=== PATIENT | male | born 1970 | race Caucasian/White ===

== ENCOUNTER 2017-04-05 13:42 | Emergency (ER) | payer MEDICAID ==
[2017-04-05 14:17] LABS: COLOR PALE YELLOW; LEUKOCYTE ESTERASE,URINE NEGATIVE (NEGATIVE); NITRITE,URINE NEGATIVE (NEGATIVE)
--- NOTE | 2017-04-05 16:16 | EDPHY ---
H & P Stated Complaint: FAINT, BLOOD IN URINE, SORE THROAT, COUGH, DIARRHEA HPI/ROS: HPI CHIEF COMPLAINT: Multiple complaints HISTORY OF PRESENT ILLNESS: This patient 38-year-old male, homeless, history of PTSD and schizophrenia, who presents emergency room by private vehicle with multitude of complaints. Patient states he has been "ill" for years. Decided come the emergency room because he states he has been having muscle aches and joint pain. Additionally he has had a cough that is productive in nature. Additionally tells me feels globally weak. He denies chest pain or shortness of breath. He does endorse nausea but no vomiting. Endorses some watery diarrhea. He states been feeling like this for years. Past Medical History: PTSD and schizophrenia Past Surgical History: No recent surgery Social History: Lives in his car, homeless, denies daily use of drugs alcohol tobacco products. Unemployed. Family History: Noncontributory. ROS REVIEW OF SYSTEMS: A comprehensive 10 point review of systems is otherwise negative aside from elements mentioned in the history of present illness. Exam Constitutional triage nursing summary reviewed, vital signs reviewed, awake/ alert. Eyes normal conjunctivae and sclera, EOMI, PERRLA. HENT normal inspection, atraumatic, moist mucus membranes, no epistaxis, neck supple/ no meningismus, no raccoon eyes. Respiratory clear to auscultation bilaterally, normal breath sounds, no respiratory distress, no wheezing. Cardiovascular rate normal, regular rhythm, no murmur, no edema, distal pulses normal. Gastrointestinal soft, non-tender, no rebound, no guarding, normal bowel sounds, no distension, no pulsatile mass. Genitourinary no CVA tenderness. Musculoskeletal no midline vertebral tenderness, full range of motion, no calf swelling, no tenderness of extremities, no meningismus, good pulses, neurovascularly intact. Skin pink, warm, & dry, no rash, skin atraumatic. Neurologic awake, alert and oriented x 3, AAOx3, moves all 4 extremities equally, motor intact, sensory intact, CN II-XII intact, normal cerebellar, normal vision, normal speech. Psychiatric normal mood/affect. Heme/Lymph/Immune no lymphadenopathy. Differential Diagnosis: Includes but is not limited to in a particular order viral syndrome, dehydration, electrolyte disturbance, influenza Medical Decision Making: Plan for this patient IV establishment with blood draw , obtain basic blood work electrolytes, check influenza, EKG, urinalysis Re-evaluation: EKG interpretation by me on record in [email or web address] system. Impression time of EKG 165, sinus rhythm rate of 79 no acute ischemic changes. 1918: Blood work has been reviewed. Electrolytes are appropriate. Urinalysis does not show any blood. Negative influenza. Chest x-ray does not show acute cardiopulmonary disease. Troponin negative. EKG is nonischemic. Patient's vital signs are stable. I do not have a great reason for his constellation of symptoms that have been going on for years. I do recommend that he follows up with his primary care doctor. There is no evidence of an acute medical condition at this time. He is comfortable discharge planning. Source: Patient - Personal History Current Tetanus/Diphtheria Vaccine: No Current Tetanus Diphtheria and Acellular Pertussis (TDAP): No - Medical/Surgical History Hx Asthma: No Hx Chronic Respiratory Disease: No Hx Diabetes: No Hx Cardiac Disease: No Hx Renal Disease: No Hx Cirrhosis: No Hx Alcoholism: Yes Hx HIV/AIDS: No Hx Splenectomy or Spleen Trauma: No Other PMH: IV drug user - Social History Smoking Status: Current every day smoker Constitutional: Initial Vital Signs Temperature (C) 36.9 C 04/05/17 13:49 Heart Rate 86 04/05/17 13:49 Respiratory Rate 18 04/05/17 13:49 Blood Pressure 118/78 04/05/17 13:49 O2 Sat (%) 96 04/05/17 13:49 O2 Delivery Mode Room Air Allergies/Adverse Reactions: codeine [Codeine] Allergy (Intermediate, Verified 04/05/17 13:48) Itching acetaminophen [From [place]] Allergy (Verified 04/05/17 13:48) hydrocodone [From [place]] Allergy (Verified 04/05/17 13:48) hydromorphone Allergy (Verified 04/05/17 13:48) morphine Allergy (Verified 04/05/17 13:48) Medical Decision Making - Diagnostics Imaging Results: Imaging Impressions Chest X-Ray 04/05/17 16:22 Impression: No pneumonia. Little if any change since November 2011. - Data Points Laboratory Results: Laboratory Results 04/05/17 18:35 04/05/17 18:35 04/05/17 04/05/17 04/05/17 Unknown 18:35 18:35 WBC RBC Hgb Hct MCV MCH MCHC RDW Plt Count MPV Neut % (Auto) Lymph % (Auto) [place] % (Auto) Eos % (Auto) Baso % (Auto) Nucleat RBC Rel Count Absolute Neuts (auto) Absolute Lymphs (auto) Absolute Monos (auto) Absolute Eos (auto) Absolute Basos (auto) Absolute Nucleated RBC Immature Gran % Immature Gran # PT 13.5 SEC SEC (12.0-15.0) INR 1.01 (0.83-1.16) APTT 30.0 SEC SEC (23.0-38.0) Sodium 139 mEq/L mEq/L (134-144) Potassium 4.4 mEq/L mEq/L (3.5-5.2) Chloride 106 mEq/L mEq/L (97-110) Carbon Dioxide 22 mEq/l mEq/l (22-31) Anion Gap 11 mEq/L mEq/L (8-16) BUN 24 mg/dL H mg/dL (7-23) Creatinine 0.9 mg/dL mg/dL (0.7-1.3) Estimated GFR > 60 Glucose 91 mg/dL mg/dL (70-100) Calcium 9.1 mg/dL mg/dL (8.5-10.4) Magnesium 1.8 mg/dL mg/dL (1.6-2.3) Total Bilirubin 0.4 mg/dL mg/dL (0.1-1.4) Conjugated Bilirubin 0.2 mg/dL mg/dL (0.0-0.5) Unconjugated Bilirubin 0.2 mg/dL mg/dL (0.0-1.1) AST 17 IU/L IU/L (17-59) ALT 24 IU/L IU/L (21-72) Alkaline Phosphatase 63 IU/L IU/L (38-126) Troponin I < 0.012 ng/mL ng/mL (0.000-0.034) NT-Pro-B Natriuret Pep 44 pg/mL pg/mL (0-125) Total Protein 6.5 g/dL g/dL (6.3-8.2) Albumin 3.7 g/dL g/dL (3.5-5.0) Lipase 158 IU/L IU/L (23-300) Urine Color Urine Appearance Urine pH Ur Specific [place] Urine Protein Urine Ketones Urine Blood Urine Nitrate Urine Bilirubin Urine Urobilinogen Ur Leukocyte Esterase Urine Glucose Nasal Influenza A PCR Nasal Influenza B PCR Urine Opiates Screen NEGATIVE (NEGATIVE) Urine Barbiturates NEGATIVE (NEGATIVE) Ur Phencyclidine Scrn NEGATIVE (NEGATIVE) Ur Amphetamine Screen NEGATIVE (NEGATIVE) U Benzodiazepines Scrn NEGATIVE (NEGATIVE) Urine Cocaine Screen NEGATIVE (NEGATIVE) U Marijuana (THC) Screen NEGATIVE (NEGATIVE) 04/05/17 04/05/17 04/05/17 18:35 17:00 14:00 WBC 7.56 10^3/uL 10^3/uL (3.80-9.50) RBC 4.06 10^6/uL L 10^6/uL (4.40-6.38) Hgb 13.5 g/dL L g/dL (13.7-17.5) Hct 37.5 % L % (40.0-51.0) MCV 92.4 fL fL (81.5-99.8) MCH 33.3 pg pg (27.9-34.1) MCHC 36.0 g/dL g/dL (32.4-36.7) RDW 12.1 % % (11.5-15.2) Plt Count 237 10^3/uL 10^3/uL (150-400) MPV 10.2 fL fL (8.7-11.7) Neut % (Auto) 58.0 % % (39.3-74.2) Lymph % (Auto) 29.8 % % (15.0-45.0) [place] % (Auto) 7.9 % % (4.5-13.0) Eos % (Auto) 3.6 % % (0.6-7.6) Baso % (Auto) 0.4 % % (0.3-1.7) Nucleat RBC Rel Count 0.0 % % (0.0-0.2) Absolute Neuts (auto) 4.39 10^3/uL 10^3/uL (1.70-6.50) Absolute Lymphs (auto) 2.25 10^3/uL 10^3/uL (1.00-3.00) Absolute Monos (auto) 0.60 10^3/uL 10^3/uL (0.30-0.80) Absolute Eos (auto) 0.27 10^3/uL 10^3/uL (0.03-0.40) Absolute Basos (auto) 0.03 10^3/uL 10^3/uL (0.02-0.10) Absolute Nucleated RBC 0.00 10^3/uL 10^3/uL (0-0.01) Immature Gran % 0.3 % % (0.0-1.1) Immature Gran # 0.02 10^3/uL 10^3/uL (0.00-0.10) PT INR APTT Sodium Potassium Chloride Carbon Dioxide Anion Gap BUN Creatinine Estimated GFR Glucose Calcium Magnesium Total Bilirubin Conjugated Bilirubin Unconjugated Bilirubin AST ALT Alkaline Phosphatase Troponin I NT-Pro-B Natriuret Pep Total Protein Albumin Lipase Urine Color PALE YELLOW Urine Appearance MODERATELY TURBID Urine pH 5.0 (5.0-7.5) Ur Specific [place] 1.005 (1.002-1.030) Urine Protein NEGATIVE (NEGATIVE) Urine Ketones NEGATIVE (NEGATIVE) Urine Blood NEGATIVE (NEGATIVE) Urine Nitrate NEGATIVE (NEGATIVE) Urine Bilirubin NEGATIVE (NEGATIVE) Urine Urobilinogen NEGATIVE EU EU (0.2-1.0) Ur Leukocyte Esterase NEGATIVE (NEGATIVE) Urine Glucose NEGATIVE (NEGATIVE) Nasal Influenza A PCR NEGATIVE FOR FLU A (NEGATIVE) Nasal Influenza B PCR NEGATIVE FOR FLU B (NEGATIVE) Urine Opiates Screen Urine Barbiturates Ur Phencyclidine Scrn Ur Amphetamine Screen U Benzodiazepines Scrn Urine Cocaine Screen U Marijuana (THC) Screen Medications Given: Discontinued Medications Sodium Chloride (Ns) 1,000 mls @ 0 mls/hr IV EDNOW ONE; Wide Open PRN Reason: Protocol Stop: 04/05/17 16:22 Last Admin: 04/05/17 16:57 Dose: 1,000 mls Ondansetron HCl (Zofran) 4 mg IVP EDNOW ONE Stop: 04/05/17 16:23 Last Admin: 04/05/17 16:57 Dose: 4 mg Departure - Departure Disposition: Home, Routine, Self-Care Clinical Impression: Dehydration Condition: Good Instructions: Dehydration (ED) Additional Instructions: 1. Stay well-hydrated drink lots of fluids. 2. Return emergency room if there is worsening symptoms questions or concerns. 3. Follow up with her primary care doctor Referrals: [facility] [Other] - As per Instructions
[2017-04-05] MEDS ORDERED: NS 1,000 ML IV ONE (16:21)
[2017-04-05] MEDS ORDERED: ONDANSETRON 4 MG/2 ML VIAL IVP ONE (16:22)
--- NOTE | 2017-04-05 16:54 | CPEKG ---
Heart Rate: 79 RR Interval: 759 P-R Interval: 152 QRSD Interval: 74 QT Interval: 368 QTC Interval: 422 P [place]: 49 QRS [place]: 45 T Wave [place]: 39 EKG Severity - NORMAL ECG - EKG Impression: SINUS RHYTHM Electronically Signed By: Grupo Nance 05-Apr-2017 22:51:04
[2017-04-05 17:00] VITALS: RESP 16; O2SAT 92
[2017-04-05 18:52] LABS: % IMMATURE GRANULYOCYTES 0.3 % (0.0-1.1); ABSOLUTE IMMATURE GRANULOCYTES 0.02 10^3/uL (0.00-0.10); ADD DIFF? NO; ADD MORPH? NO; ADD SCAN? NO; ATYPICAL LYMPHOCYTE FLAG 0 (0-99); FRAGMENT RBC FLAG 0 (0-99); HEMATOCRIT 37.5 % (40.0-51.0); HEMOGLOBIN 13.5 g/dL (13.7-17.5); LEFT SHIFT FLG 0 (0-99); LIPEMIA HEMOLYSIS FLAG 90 (0-99); MEAN CELL HEMOGLOBIN 33.3 pg (27.9-34.1); MEAN CELL VOLUME 92.4 fL (81.5-99.8); MEAN PLATELET VOLUME 10.2 fL (8.7-11.7); PLATELET CLUMPS FLAG 10 (0-99); PLATELET COUNT 237 10^3/uL (150-400); RED BLOOD CELL COUNT 4.06 10^6/uL (4.40-6.38); RED CELL DISTRIBUTION WIDTH 12.1 % (11.5-15.2)
[2017-04-05 18:59] LABS: INR 1.01 (0.83-1.16); PROTIME(PATIENT) 13.5 SEC (12.0-15.0)
[2017-04-05 19:00] LABS: ALANINE AMINOTRANSFERASE 24 IU/L (21-72); ALBUMIN 3.7 g/dL (3.5-5.0); ALKALINE PHOSPHATASE 63 IU/L (38-126); ANION GAP 11 mEq/L (8-16); ASPARTATE AMINOTRANSFERASE 17 IU/L (17-59); BILIRUBIN,TOTAL 0.4 mg/dL (0.1-1.4); BILIRUBIN-CONJUGATED 0.2 mg/dL (0.0-0.5); BILIRUBIN-UNCONJUGATED 0.2 mg/dL (0.0-1.1); CALCIUM 9.1 mg/dL (8.5-10.4); CARBON DIOXIDE 22 mEq/l (22-31); CHLORIDE 106 mEq/L (97-110); CREATININE 0.9 mg/dL (0.7-1.3); GLOMERULAR FILTRATION RATE > 60; GLUCOSE 91 mg/dL (70-100); MAGNESIUM 1.8 mg/dL (1.6-2.3); POTASSIUM 4.4 mEq/L (3.5-5.2); SODIUM 139 mEq/L (134-144); TOTAL PROTEIN 6.5 g/dL (6.3-8.2)
[2017-04-05 19:11] LABS: TROPONIN I < 0.012 ng/mL (0.000-0.034)
[2017-04-05 19:30] VITALS: BP 128/73; PULSE 67; TEMP 97.9
== END 2017-04-05 19:29 | disposition home or self-care (01) ==
DX: E86.0 Dehydration (principal); E86.9 Volume depletion, unspecified; F17.200 Nicotine dependence, unspecified, uncomplicated
CPT/HCPCS: 80305; 96374; J2405

== ENCOUNTER 2017-04-14 21:00 | Emergency (ER) | payer MEDICAID ==
[2017-04-14 21:07] VITALS: BP 122/77; PULSE 80; RESP 18; TEMP 97.9; O2SAT 96
[2017-04-14] MEDS ORDERED: OLANZapine DISINTEGR 5 MG TAB PO ONE (21:45)
[2017-04-14] MEDS ORDERED: ZIPRASIDONE MESYLATE 20 MG VIAL IM ONE (21:49)
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
[2017-04-14] MEDS ORDERED: LORazepam 2 MG/ML INJ ONE (22:09)
[2017-04-14] MEDS ORDERED: LORazepam 2 MG/ML INJ IM ONE (22:17)
[2017-04-15] MEDS ORDERED: ZIPRASIDONE MESYLATE 20 MG VIAL IM ONE (00:14)
== END 2017-04-15 01:31 ==
DX: R45.851 Suicidal ideations (principal); F30.9 Manic episode, unspecified; F17.200 Nicotine dependence, unspecified, uncomplicated; F29 Unspecified psychosis not due to a substance or known physiological condition
CPT/HCPCS: 80305; J2060; J3486

== ENCOUNTER 2017-04-16 05:57 | Emergency (ER) | payer MEDICAID ==
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
[2017-04-16 06:09] VITALS: BP 138/86; PULSE 66; RESP 18; TEMP 97.9; O2SAT 96
[2017-04-16] MEDS ORDERED: IBUPROFEN 600 MG TAB PO ONE ×2 (06:16)
== END 2017-04-16 06:44 | disposition home or self-care (01) ==
DX: T14.8XXA Other injury of unspecified body region, initial encounter (principal); F17.200 Nicotine dependence, unspecified, uncomplicated; Y09 Assault by unspecified means

== ENCOUNTER 2017-10-22 16:41 | Emergency (ER) | payer MEDICAID ==
[2017-10-22 16:52] VITALS: BP 107/75
[2017-10-22] MEDS ORDERED: diphenhydrAMINE 25 MG CAP PO ONE (17:14)
[2017-10-22] MEDS ORDERED: predniSONE 20 MG TAB PO ONE (17:14)
[2017-10-22] MEDS ORDERED: FAMOTIDINE 20 MG TAB PO ONE (17:14)
--- NOTE | 2017-10-22 17:16 | EDPHY ---
H & P Stated Complaint: Noticed urticarial rash since yesterday; mostly on extremities Time Seen by Provider: 10/22/17 17:10 HPI/ROS: CHIEF COMPLAINT: Urticaria HISTORY OF PRESENT ILLNESS: The patient is a 47-year-old man who comes to the emergency department complaining of urticaria to his armpits and forearms and back of his legs. He 1st noticed yesterday. It is pruritic and he is itching it. No known new exposures. No new foods. No new medications. He states that he has been sober from drugs and alcohol for 8 months. No respiratory symptoms. No GI symptoms. REVIEW OF SYSTEMS: Constitutional: denies: chills, fever, recent illness, recent injury EENTM: denies: blurred vision, double vision, nose congestion Respiratory: denies: cough, shortness of breath Cardiac: denies: chest pain, irregular heart rate, lightheadedness, palpitations Gastrointestinal/Abdominal: denies: abdominal pain, diarrhea, nausea, vomiting, blood streaked stools Genitourinary: denies: dysuria, frequency, hematuria, pain Musculoskeletal: denies: joint pain, muscle pain Skin: See HPI Neurological: denies: headache, numbness, paresthesia, tingling, dizziness, weakness Hematologic/Lymphatic: denies: blood clots, easy bleeding, easy bruising Immunologic/allergic: denies: HIV/AIDS, transplant EXAM: GENERAL: Well-appearing, well-nourished and in no acute distress. HEAD: Atraumatic, normocephalic. EYES: Pupils equal round and reactive to light, extraocular movements intact, sclera anicteric, conjunctiva are normal. ENT: TMs normal, nares patent, oropharynx clear without exudates. Moist mucous membranes. NECK: Normal range of motion, supple without lymphadenopathy or JVD. LUNGS: Breath sounds clear to auscultation bilaterally and equal. No wheezes rales or rhonchi. HEART: Regular rate and rhythm without murmurs, rubs or gallops. ABDOMEN: Soft, nontender, normoactive bowel sounds. No guarding, no rebound. No masses appreciated. BACK: No CVA tenderness, no spinal tenderness, step-offs or deformities EXTREMITIES: Normal range of motion, no pitting or edema. No clubbing or cyanosis. NEUROLOGICAL: Cranial nerves II through XII grossly intact. Normal speech, normal gait. 5/5 strength, normal movement in all extremities, normal sensation PSYCH: Normal mood, normal affect. SKIN: Small urticarial lesions to both armpits and both forearms as well as behind knees. Source: Patient Exam Limitations: No limitations - Personal History Current Tetanus Diphtheria and Acellular Pertussis (TDAP): Yes - Medical/Surgical History Hx Asthma: No Hx Chronic Respiratory Disease: No Hx Diabetes: No Hx Cardiac Disease: No Hx Renal Disease: No Hx Cirrhosis: No Hx Alcoholism: Yes Hx HIV/AIDS: No Hx Splenectomy or Spleen Trauma: No Other PMH: PSYCH ISSUES. IV drug user - Family History Significant Family History: No pertinent family hx - Social History Smoking Status: Current every day smoker Alcohol Use: Sober Drug Use: None Constitutional: Initial Vital Signs Temperature (C) 36.8 C 10/22/17 16:45 Heart Rate 80 10/22/17 16:45 Respiratory Rate 16 10/22/17 16:45 Blood Pressure 107/75 10/22/17 16:45 O2 Sat (%) 95 10/22/17 16:45 O2 Delivery Mode Room Air Allergies/Adverse Reactions: codeine [Codeine] Allergy (Intermediate, Verified 04/05/17 13:48) Itching acetaminophen [From [place]] Allergy (Verified 04/05/17 13:48) hydrocodone [From [place]] Allergy (Verified 04/05/17 13:48) hydromorphone Allergy (Verified 10/22/17 16:52) morphine Allergy (Verified 10/22/17 16:52) Home Medications: Medication Instructions Recorded diphenhydrAMINE [Benadryl 50 MG 50 mg PO Q4-6PRN PRN #30 cap 10/22/17 (OTC)] methylPREDNISolone [Medrol Dose 1 each PO AD #1 ea 10/22/17 Nitish] Medical Decision Making ED Course/Re-evaluation: 6:15 p.m. the patient's symptoms have improved. He is asking to go home. I will have him continue Benadryl give him a Solu-Medrol taper. He is happy with this plan. We discussed indications for returning. Differential Diagnosis: Partial list of the Differential diagnosis considered include but were not limited to; allergic reaction, urticaria and although unlikely based on the history and physical exam, I also considered anaphylaxis, infection. - Data Points Medications Given: Discontinued Medications Diphenhydramine HCl (Benadryl) 50 mg PO EDNOW ONE Stop: 10/22/17 17:15 Last Admin: 10/22/17 17:17 Dose: 50 mg Famotidine (Pepcid) 40 mg PO EDNOW ONE Stop: 10/22/17 17:15 Last Admin: 10/22/17 17:17 Dose: 40 mg Prednisone (Prednisone) 60 mg PO EDNOW ONE Stop: 10/22/17 17:15 Last Admin: 10/22/17 17:17 Dose: 60 mg Departure - Departure Disposition: Home, Routine, Self-Care Clinical Impression: Urticaria Condition: Fair Instructions: Urticaria (ED) Referrals: Deyanira Patterson PA [Primary Care Provider] - As per Instructions Rupali Venegas MD [[facility] [place] Primary Care Provider] - As per Instructions Prescriptions: diphenhydrAMINE [Benadryl 50 MG (OTC)] 50 mg PO Q4-6PRN PRN #30 cap PRN Reason: Itching methylPREDNISolone [Medrol Dose Nitish] 1 each PO AD #1 ea
== END 2017-10-22 18:23 | disposition home or self-care (01) ==
DX: L50.9 Urticaria, unspecified (principal); F17.200 Nicotine dependence, unspecified, uncomplicated
CPT/HCPCS: J7512

== ENCOUNTER 2017-10-25 21:35 | Emergency (ER) | payer MEDICAID ==
--- NOTE | 2017-10-25 21:58 | EDPHY ---
H & P Stated Complaint: general soreness, lightheaded, abd pain Time Seen by Provider: 10/25/17 21:58 HPI/ROS: HPI CHIEF COMPLAINT: GI upset, diarrhea HISTORY OF PRESENT ILLNESS: 47-year-old male, history of IV drug use, as well as schizophrenia, presents emergency room stating that his stomach has been upset since being treated for possible allergic reaction recently. He states he was started on Benadryl and got a dose of steroids in the emergency room approximately 4 days ago for rash. The rash has improved. He no longer feels like he is having allergic reaction. However he comes back to the emergency room as he states he has been feeling abdominal bloating and cramps at times, as well as some loose watery diarrhea. No melena. No hematemesis. Denies any fever. Denies any significant abdominal pain. Denies chest pain or shortness of breath. Denies bloody stool or fever. Past Medical History: IV drug use, schizophrenia, homelessness Past Surgical History: No recent surgery Social History: Denies daily use drugs alcohol tobacco. Family History: Noncontributory ROS REVIEW OF SYSTEMS: A comprehensive 10 point review of systems is otherwise negative aside from elements mentioned in the history of present illness. Exam Constitutional nontoxic appearing, triage nursing summary reviewed, vital signs reviewed, awake/alert. Eyes normal conjunctivae and sclera, EOMI, PERRLA. HENT normal inspection, atraumatic, moist mucus membranes, no epistaxis, neck supple/ no meningismus, no raccoon eyes. Respiratory clear to auscultation bilaterally, normal breath sounds, no respiratory distress, no wheezing. Cardiovascular rate normal, regular rhythm, no murmur, no edema, distal pulses normal. Gastrointestinal soft, non-tender, no rebound, no guarding, normal bowel sounds, no distension, no pulsatile mass. Genitourinary no CVA tenderness. Musculoskeletal no midline vertebral tenderness, full range of motion, no calf swelling, no tenderness of extremities, no meningismus, good pulses, neurovascularly intact. Skin pink, warm, & dry, no rash, skin atraumatic. Neurologic awake, alert and oriented x 3, AAOx3, moves all 4 extremities equally, motor intact, sensory intact, CN II-XII intact, normal cerebellar, normal vision, normal speech. Psychiatric normal mood/affect. Heme/Lymph/Immune no lymphadenopathy. Differential Diagnosis: Includes but is not limited to in a particular order dehydration, electrolyte disturbance, acute GI illness, diarrheal illness, reaction to steroids Medical Decision Making: Plan for this patient IV establishment IV fluid bolus 1 L normal saline, check basic electrolytes, CBC, lipase, re-evaluate. Re-evaluation: 234: Patient re-evaluated resting comfortably no acute distress. Patient asystole drinking eat. I did reexamine him at this time is abdomen is soft nontender. No vomiting. Feels much better. Return precautions discussed with him he understands return emergency room if develops worsening abdominal pain fever worsening diarrhea bloody stool or questions or concerns. Izard diet over the next 48 hr. Source: Patient - Medical/Surgical History Hx Asthma: No Hx Chronic Respiratory Disease: No Hx Diabetes: No Hx Cardiac Disease: No Hx Renal Disease: No Hx Cirrhosis: No Hx Alcoholism: Yes Hx HIV/AIDS: No Hx Splenectomy or Spleen Trauma: No Other PMH: PSYCH ISSUES. IV drug user - Social History Smoking Status: Current every day smoker Constitutional: Initial Vital Signs Temperature (C) 36.8 C 10/25/17 21:43 Heart Rate 76 10/25/17 21:43 Respiratory Rate 20 10/25/17 21:43 Blood Pressure 133/71 H 10/25/17 21:43 O2 Sat (%) 95 10/25/17 21:43 O2 Delivery Mode Room Air Allergies/Adverse Reactions: codeine [Codeine] Allergy (Intermediate, Verified 04/05/17 13:48) Itching acetaminophen [From [place]] Allergy (Verified 04/05/17 13:48) bupropion [From Wellbutrin] Allergy (Verified 10/25/17 21:42) chlorpromazine [From [place]] Allergy (Verified 10/25/17 21:42) haloperidol [From Haldol] Allergy (Verified 10/25/17 21:42) hydrocodone [From [place]] Allergy (Verified 04/05/17 13:48) hydromorphone Allergy (Verified 10/22/17 16:52) morphine Allergy (Verified 10/22/17 16:52) quetiapine [From Seroquel] Allergy (Verified 10/25/17 21:42) Home Medications: Medication Instructions Recorded diphenhydrAMINE [Benadryl 50 MG 50 mg PO Q4-6PRN PRN #30 cap 10/22/17 (OTC)] methylPREDNISolone [Medrol Dose 1 each PO AD #1 ea 10/22/17 Nitish] Medical Decision Making - Data Points Laboratory Results: Laboratory Results 10/25/17 22:45 10/25/17 22:45 10/25/17 10/25/17 22:45 22:45 WBC 6.12 10^3/uL 10^3/uL (3.80-9.50) RBC 3.58 10^6/uL L 10^6/uL (4.40-6.38) Hgb 11.7 g/dL L g/dL (13.7-17.5) Hct 34.1 % L % (40.0-51.0) MCV 95.3 fL fL (81.5-99.8) MCH 32.7 pg pg (27.9-34.1) MCHC 34.3 g/dL g/dL (32.4-36.7) RDW 13.8 % % (11.5-15.2) Plt Count 322 10^3/uL 10^3/uL (150-400) MPV 10.4 fL fL (8.7-11.7) Neut % (Auto) 62.1 % % (39.3-74.2) Lymph % (Auto) 27.6 % % (15.0-45.0) [place] % (Auto) 8.5 % % (4.5-13.0) Eos % (Auto) 1.0 % % (0.6-7.6) Baso % (Auto) 0.5 % % (0.3-1.7) Nucleat RBC Rel Count 0.0 % % (0.0-0.2) Absolute Neuts (auto) 3.80 10^3/uL 10^3/uL (1.70-6.50) Absolute Lymphs (auto) 1.69 10^3/uL 10^3/uL (1.00-3.00) Absolute Monos (auto) 0.52 10^3/uL 10^3/uL (0.30-0.80) Absolute Eos (auto) 0.06 10^3/uL 10^3/uL (0.03-0.40) Absolute Basos (auto) 0.03 10^3/uL 10^3/uL (0.02-0.10) Absolute Nucleated RBC 0.00 10^3/uL 10^3/uL (0-0.01) Immature Gran % 0.3 % % (0.0-1.1) Immature Gran # 0.02 10^3/uL 10^3/uL (0.00-0.10) Sodium 135 mEq/L mEq/L (135-145) Potassium 5.1 mEq/L H mEq/L (3.3-5.0) Chloride 108 mEq/L mEq/L (97-110) Carbon Dioxide 24 mEq/l mEq/l (22-31) Anion Gap 3 mEq/L L mEq/L (8-16) BUN 27 mg/dL H mg/dL (7-23) Creatinine 0.8 mg/dL mg/dL (0.7-1.3) Estimated GFR > 60 Glucose 96 mg/dL mg/dL (70-100) Calcium 8.7 mg/dL mg/dL (8.5-10.4) Total Bilirubin 0.7 mg/dL mg/dL (0.1-1.4) Conjugated Bilirubin 0.6 mg/dL H mg/dL (0.0-0.5) Unconjugated Bilirubin 0.1 mg/dL mg/dL (0.0-1.1) AST 33 IU/L IU/L (17-59) ALT 17 IU/L L IU/L (21-72) Alkaline Phosphatase 62 IU/L IU/L (38-126) Creatine Kinase 242 IU/L H IU/L (0-224) CK-MB (CK-2) Fraction 1.47 ng/mL ng/mL (0.00-4.55) CK-MB (CK-2) % 0.6 % % (0.0-4.0) Creatine Kinase Interp NEGATIVE (NEGATIVE) Total Protein 6.7 g/dL g/dL (6.3-8.2) Albumin 3.9 g/dL g/dL (3.5-5.0) Lipase 149 IU/L IU/L (23-300) Specimen Hemolysis 165 Medications Given: Discontinued Medications Sodium Chloride (Ns) 1,000 mls @ 0 mls/hr IV EDNOW ONE; Wide Open PRN Reason: Protocol Stop: 10/25/17 22:02 Last Admin: 10/25/17 22:46 Dose: 1,000 mls Departure - Departure Disposition: Home, Routine, Self-Care Clinical Impression: Diarrhea Qualifiers: Diarrhea type: unspecified type Qualified Code(s): R19.7 - Diarrhea, unspecified Condition: Good Instructions: Acute Diarrhea (ED) Referrals: NONE *PRIMARY CARE P,. [Primary Care Provider] - As per Instructions
[2017-10-25] MEDS ORDERED: NS 1,000 ML IV ONE (22:01)
[2017-10-25 22:23] VITALS: BP 117/68
[2017-10-25 22:54] LABS: PLATELET COUNT 322 10^3/uL (150-400)
[2017-10-25 23:15] LABS: CREATINE KINASE 242 IU/L (0-224)
== END 2017-10-25 23:51 | disposition home or self-care (01) ==
DX: R19.7 Diarrhea, unspecified (principal); E86.9 Volume depletion, unspecified; F17.200 Nicotine dependence, unspecified, uncomplicated

== ENCOUNTER 2017-11-01 15:15 | Emergency (ER) | payer MEDICAID ==
--- NOTE | 2017-11-01 17:21 | EDPHY ---
H & P Time Seen by Provider: 11/01/17 17:16 HPI/ROS: Chief complaint. balance issues HPI. Patient 47-year-old male tells me that he has had balance issues for 6 months. He has not had a workup. He is seen at [facility]. He was seen in our emergency department October 25 and October 22. Patient says that occasionally he loses his balance wall riding his bicycle. He has a history of schizophrenia not on any medications. He has a history of IV drug use and alcoholism. Denies recent ingestions. Been no head injury. Denies chest pain , fever, abdominal pain, focal weakness or paresthesias. Patient started taking Dramamine to see if that would help with his balance but does not feel it has. Patient has been having balance issues for 6 months and is not worse today. ROS Constitutional. no fever/chills, no weakness Eyes. no problems with vision ENT. no sore throat, no nasal drainage Cardiovascular. no chest pain Respiratory. no shortness of breath, no cough Abdominal. no abdominal pain, no nausea/vomiting, no diarrhea . no problems urinating MS. no calf pain/swelling, no neck/back pain, no joint pain Skin. no rash Lymph. no swollen glands Neuro. Balance issues Past Medical/Surgical History: Schizophrenia, IVDA Social History: Single, daily smoker, no alcohol Smoking Status: Current every day smoker Physical Exam: General Appearance: Alert well-developed male no distress vital signs are stay Eyes: Pupils equal and round no pallor or injection. ENT, Mouth: Mucous membranes are moist. Respiratory: There are no retractions, lungs are clear to auscultation. Cardiovascular: Regular rate and rhythm. Gastrointestinal: Abdomen is soft and nontender, no masses, bowel sounds normal. Neurological: Awake and alert, sensory and motor exams grossly normal. Speech is normal. Cranial nerves are normal. There is no pronator drift. Finger-to- nose and [id number] are intact bilaterally. Patient walks heel to toe straight line without being off balance Skin: Warm and dry, no rashes. Musculoskeletal: Neck is supple nontender. Extremities symmetrical, full range of motion. Psychiatric: Patient is oriented X 3, there is no agitation. Constitutional: Initial Vital Signs Temperature (C) 37 C 11/01/17 15:35 Heart Rate 88 11/01/17 15:35 Respiratory Rate 17 11/01/17 15:35 Blood Pressure 117/66 11/01/17 15:35 O2 Sat (%) 95 11/01/17 15:35 O2 Delivery Mode Room Air Allergies/Adverse Reactions: codeine [Codeine] Allergy (Intermediate, Verified 11/01/17 15:34) Itching acetaminophen [From [place]] Allergy (Verified 11/01/17 15:34) bupropion [From Wellbutrin] Allergy (Verified 11/01/17 15:34) chlorpromazine [From [place]] Allergy (Verified 11/01/17 15:34) haloperidol [From Haldol] Allergy (Verified 11/01/17 15:34) hydrocodone [From [place]] Allergy (Verified 11/01/17 15:34) hydromorphone Allergy (Verified 11/01/17 15:34) morphine Allergy (Verified 11/01/17 15:34) quetiapine [From Seroquel] Allergy (Verified 11/01/17 15:34) Home Medications: Medication Instructions Recorded Dramamine 11/01/17 Meclizine HCl 25 mg PO Q6-8PRN PRN #10 tablet 11/01/17 Medical Decision Making ED Course/Re-evaluation: Patient and I discussed treatment plan including criteria for return importance of follow-up further evaluation. He expresses understanding and agreement Differential Diagnosis: Patient has a normal neurologic exam and complaint of being off balance for 6 months. There are no acute findings. I do not think emergent imaging is necessary today Departure - Departure Disposition: Home, Routine, Self-Care Clinical Impression: Dizziness Condition: Good Instructions: Vertigo (ED) Additional Instructions: Meclizine 1 pill every 8 hr as needed for off balance. Return for worsening symptoms. Follow up at [facility] for further evaluation Referrals: Deyanira Patterson PA [Primary Care Provider] - 5-7 days, call for appt. Prescriptions: Meclizine HCl 25 mg PO Q6-8PRN PRN #10 tablet PRN Reason: Dizziness
[2017-11-01 17:50] VITALS: BP 116/69
== END 2017-11-01 17:50 | disposition home or self-care (01) ==
DX: R42 Dizziness and giddiness (principal); F17.200 Nicotine dependence, unspecified, uncomplicated

== ENCOUNTER 2017-11-12 06:06 | Emergency (ER) | payer MEDICAID ==
--- NOTE | 2017-11-12 07:19 | EDPHY ---
H & P Stated Complaint: Vertigo [past 6 months nonstop], dizziness, Time Seen by Provider: 11/12/17 07:01 HPI/ROS: CHIEF COMPLAINT: Vertigo HISTORY OF PRESENT ILLNESS: The patient presents to the ED with complaints of 6 months of vertigo. The patient describes fairly classic symptoms of disequilibrium. He has been taking Dramamine without any improvement of his symptoms. He denies any neuro imaging today. The patient denies significant headaches or peripheral numbness or weakness. Patient denies any recent history of head trauma. The patient has sustained some falls as a result of his vertigo. The patient denies taking any regular medications. The patient denies any alcohol abuse. The patient denies history of chiropractic manipulation or acute neck pain. REVIEW OF SYSTEMS: A comprehensive 10 point review of systems is otherwise negative aside from elements mentioned in the history of present illness. Source: Patient Exam Limitations: No limitations - Personal History Current Tetanus Diphtheria and Acellular Pertussis (TDAP): No - Medical/Surgical History Hx Asthma: No Hx Chronic Respiratory Disease: No Hx Diabetes: No Hx Cardiac Disease: No Hx Renal Disease: No Hx Cirrhosis: No Hx Alcoholism: Yes Hx HIV/AIDS: No Hx Splenectomy or Spleen Trauma: No Other PMH: PSYCH ISSUES. IV drug user. vertigo - Social History Smoking Status: Current every day smoker - Physical Exam Exam: General Appearance: Alert, no distress Eyes: Pupils equal and round no pallor or injection ENT, Mouth: Mucous membranes moist Respiratory: There are no retractions, lungs are clear to auscultation Cardiovascular: Regular rate and rhythm Gastrointestinal: Abdomen is soft and nontender, no masses, bowel sounds normal Neurological: And oriented x4, 5/5 strength all 4 extremities, normal sensory exam, cranial nerves 2-12 intact, no appreciable nystagmus on exam Skin: Warm and dry, no rashes Musculoskeletal: Neck is supple nontender Extremities: symmetrical, full range of motion Psychiatric: Patient is oriented X 3, there is no agitation Constitutional: Initial Vital Signs Temperature (C) 36.5 C 11/12/17 06:21 Heart Rate 62 11/12/17 06:21 Respiratory Rate 19 11/12/17 06:21 Blood Pressure 103/69 11/12/17 06:21 O2 Sat (%) 95 11/12/17 06:21 O2 Delivery Mode Room Air Allergies/Adverse Reactions: codeine [Codeine] Allergy (Intermediate, Verified 11/12/17 06:20) Itching acetaminophen [From [place]] Allergy (Verified 11/12/17 06:20) bupropion [From Wellbutrin] Allergy (Verified 11/12/17 06:20) chlorpromazine [From Thorazine] Allergy (Verified 11/12/17 06:20) haloperidol [From Haldol] Allergy (Verified 11/12/17 06:20) hydrocodone [From [place]] Allergy (Verified 11/12/17 06:20) hydromorphone Allergy (Verified 11/12/17 06:20) morphine Allergy (Verified 11/12/17 06:20) quetiapine [From Seroquel] Allergy (Verified 11/12/17 06:20) Home Medications: Medication Instructions Recorded Dramamine 11/01/17 Meclizine HCl 25 mg PO Q6-8PRN PRN #10 tablet 11/01/17 Azithromycin [Zithromax] 250 mg PO DAILY #6 tab 11/04/17 Medical Decision Making - Diagnostics Imaging Results: Brain MRI without contrast: Nonspecific white matter changes noted, no obvious explanation for central vertigo appreciated. 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 ED Course/Re-evaluation: The patient presents to the ED with 6 months of chronic vertigo. I appreciate no significant abnormalities on his neurologic examination. The patient underwent a MRI of his brain which demonstrates no evidence of central vertigo. The patient will be a given a prescription for meclizine. I have asked him to follow up with our on-call ENT physician for further evaluation. The patient will be also advised to follow up with his primary care provider for a recheck in the coming weeks. Differential Diagnosis: Differential diagnosis considered includes benign vertigo, positional vertigo, dehydration, metabolic abnormality, labyrinthitis Departure - Departure Disposition: Home, Routine, Self-Care Clinical Impression: Vertigo Condition: Good Instructions: Vertigo (ED) Additional Instructions: 1. Please continue your medications for vertigo. 2. You have been given the number of our ENT specialist, Dr. Ezekiel Leger, for further evaluation of your symptoms. 3. Your brain MRI today demonstrates no obvious abnormalities. Referrals: Deyanira Patterson PA [Primary Care Provider] - As per Instructions Ezekiel Leger MD [Medical Doctor] - As per Instructions
[2017-11-12 10:49] VITALS: BP 134/71
== END 2017-11-12 10:49 | disposition home or self-care (01) ==
DX: R42 Dizziness and giddiness (principal); F17.200 Nicotine dependence, unspecified, uncomplicated

== ENCOUNTER 2018-05-23 18:25 | Emergency (ER) | payer MEDICAID ==
[2018-05-23] MEDS ORDERED: ONDANSETRON 4MG PREPACK#2 BTL TAKEHOME ONE (18:53)
[2018-05-23] MEDS ORDERED: ONDANSETRON DISINTEGRATING 4 MG TAB PO ONE (18:53)
--- NOTE | 2018-05-23 18:56 | EDPHY ---
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 He states that he has had several episodes of vomiting today as well as diarrhea. Nonbloody. He is here asking for medications. He states that he also has chronic vertigo and this is unchanged. Severity: Moderate Modifying factors: None REVIEW OF SYSTEMS: Constitutional: denies: chills, fever, recent illness, recent injury EENTM: denies: blurred vision, double vision, nose congestion Respiratory: denies: cough, shortness of breath Cardiac: denies: chest pain, irregular heart rate, lightheadedness, palpitations Gastrointestinal/Abdominal: See HPI Genitourinary: denies: dysuria, frequency, hematuria, pain Musculoskeletal: denies: joint pain, muscle pain Skin: denies: lesions, rash, jaundice, bruising Neurological: denies: headache, numbness, paresthesia, tingling, dizziness, weakness Hematologic/Lymphatic: denies: blood clots, easy bleeding, easy bruising Immunologic/allergic: denies: HIV/AIDS, transplant 10 systems reviewed and negative except as noted EXAM: GENERAL: Well-appearing, well-nourished and in no acute distress. HEAD: Atraumatic, normocephalic. EYES: Pupils equal round and reactive to light, extraocular movements intact, sclera anicteric, conjunctiva are normal. ENT: TMs normal, nares patent, oropharynx clear without exudates. Moist mucous membranes. NECK: Normal range of motion, supple without lymphadenopathy or JVD. LUNGS: Breath sounds clear to auscultation bilaterally and equal. No wheezes rales or rhonchi. HEART: Regular rate and rhythm without murmurs, rubs or gallops. ABDOMEN: Soft, nontender, normoactive bowel sounds. No guarding, no rebound. No masses appreciated. BACK: No CVA tenderness, no spinal tenderness, step-offs or deformities EXTREMITIES: Normal range of motion, no pitting or edema. No clubbing or cyanosis. NEUROLOGICAL: Cranial nerves II through XII grossly intact. Normal speech, normal gait. 5/5 strength, normal movement in all extremities, normal sensation , normal reflexes PSYCH: Normal mood, normal affect. SKIN: Warm, dry, normal turgor, no visible rashes or lesions. Source: Patient Exam Limitations: No limitations - Personal History Current Tetanus Diphtheria and Acellular Pertussis (TDAP): No - Medical/Surgical History Hx Asthma: No Hx Chronic Respiratory Disease: No Hx Diabetes: No Hx Cardiac Disease: No Hx Renal Disease: No Hx Cirrhosis: No Hx Alcoholism: Yes Hx HIV/AIDS: No Hx Splenectomy or Spleen Trauma: No Other PMH: PSYCH ISSUES. IV drug user. vertigo - Family History Significant Family History: No pertinent family hx - Social History Smoking Status: Current every day smoker Alcohol Use: Sober Constitutional: Initial Vital Signs Temperature (C) 37 C 05/23/18 18:34 Heart Rate 84 05/23/18 18:34 Respiratory Rate 16 05/23/18 18:34 Blood Pressure 111/76 05/23/18 18:34 O2 Sat (%) 94 05/23/18 18:34 O2 Delivery Mode Room Air Allergies/Adverse Reactions: codeine [Codeine] Allergy (Intermediate, Verified 05/23/18 18:33) Itching acetaminophen [From [place]] Allergy (Verified 05/23/18 18:33) bupropion [From Wellbutrin] Allergy (Verified 05/23/18 18:33) chlorpromazine [From Thorazine] Allergy (Verified 05/23/18 18:33) haloperidol [From Haldol] Allergy (Verified 05/23/18 18:33) hydrocodone [From [place]] Allergy (Verified 05/23/18 18:33) hydromorphone Allergy (Verified 05/23/18 18:33) morphine Allergy (Verified 05/23/18 18:33) quetiapine [From Seroquel] Allergy (Verified 05/23/18 18:33) Home Medications: Medication Instructions Recorded Ondansetron Odt [Zofran Odt 4 mg 4 mg PO Q4 PRN #20 tab 05/23/18 (RX)] Medical Decision Making ED Course/Re-evaluation: Patient is primarily here requesting nausea medication. He does not wish to have an IV or lab work done. He asked me to sign is work release form. Differential Diagnosis: Partial list of the Differential diagnosis considered include but were not limited to; gastritis, food poisoning and although unlikely based on the history and physical exam, I also considered influenza, viral syndrome, pneumonia, sepsis. I discussed these differential diagnoses and the plan with the patient as well as the usual and expected course. The patient understands that the diagnosis is provisional and that in medicine we are not always correct and that further workup is often warranted. Usual and customary warnings were given. All of the patient's questions were answered. The patient was instructed to return to the emergency department should the symptoms at all worsen or return, otherwise to followup with the physician as we discussed. - Data Points Medications Given: Discontinued Medications Ondansetron HCl (Zofran Odt) 4 mg PO EDNOW ONE Stop: 05/23/18 18:54 Last Admin: 05/23/18 19:02 Dose: 4 mg Ondansetron HCl (Zofran Odt 4 Mg Prepack#2) 1 btl TAKEHOME EDNOW ONE Stop: 05/23/18 18:54 Last Admin: 05/23/18 19:02 Dose: 1 btl Departure - Departure Disposition: Home, Routine, Self-Care Clinical Impression: Vomiting and diarrhea Condition: Fair Instructions: Ondansetron (By mouth), Gastroenteritis (ED) Referrals: [facility],. [Clinic] - 2-3 days, if not improved Prescriptions: Ondansetron Odt [Zofran Odt 4 mg (RX)] 4 mg PO Q4 PRN #20 tab PRN Reason: Nausea & Vomiting
[2018-05-23 19:09] VITALS: BP 122/69
== END 2018-05-23 19:07 | disposition home or self-care (01) ==
DX: R11.10 Vomiting, unspecified (principal); R19.7 Diarrhea, unspecified; F17.200 Nicotine dependence, unspecified, uncomplicated; Z59.0 Homelessness

== ENCOUNTER 2018-05-28 18:16 | Emergency (ER) | payer MEDICAID ==
[2018-05-28 18:26] VITALS: BP 138/91
--- NOTE | 2018-05-28 18:48 | EDPHY ---
H & P Stated Complaint: sinus pressure Time Seen by Provider: 05/28/18 18:43 HPI/ROS: CHIEF COMPLAINT: "I have a sinus infection" x1 week HISTORY OF PRESENT ILLNESS: 47-year-old male, homeless, history of hepatitis-C , complaining of sinus pressure and congestion for the past 1 week. He denies: Headache, nausea, vomiting, otalgia, dysphagia, odynophagia, chest pain, dyspnea, abdominal pain, nausea, vomiting, diarrhea, rash. PRIMARY CARE PROVIDER: REVIEW OF SYSTEMS: 10 systems reviewed and negative with the exception of the elements mentioned in the history of present illness PAST MEDICAL & SURGICAL HISTORY: Hepatitis-C SOCIAL HISTORY: Homeless. Positive tobacco abuse. PHYSICAL EXAM (Prior to examination, patient consented to physical exam, hands were washed and my usual and customary physical exam procedures followed) 1) GENERAL: Well-developed, well-nourished, alert and oriented. Appears nontoxic 2) HEAD: Normocephalic, atraumatic 3) HEENT: Pupils equal, round, reactive to light bilaterally. Sclera anicteric. [Nasopharynx: Tender to percussion maxillary sinus, oropharynx, clear, no lesions. No tonsillar enlargement or exudate. Ears bilaterally with normal tympanic membranes. No Evidence of otitis media otitis externa. 4) NECK: Full range of motion, no meningeal signs. 5) LUNGS: Clear auscultation bilaterally, no wheezes, no rhonchi, no retractions. 6) HEART: Regular rate and rhythm, no murmur, no heave, no gallop. 7) ABDOMEN: No guarding, no rebound, no focal tenderness, negative McBurney's, negative Bai's, negative Rovsing's, negative peritoneal sign, 8) MUSCULOSKELETAL: Moving all extremities, no focal areas of tenderness, no obvious trauma. No peripheral edema or discoloration. 9) BACK: No CVA tenderness, no midline vertebral tenderness, no fluctuance, no step-off, no obvious trauma, no visual or palpable abnormality. 10) SKIN: No rash, no petechiae. 11) Psychiatric: Patient is oriented X 3, there is no agitation. DIFFERENTIAL DIAGNOSIS: In no particular order including but not limited to acute sinusitis, otitis media, otitis externa, pharyngitis - Personal History Current Tetanus/Diphtheria Vaccine: Unsure Current Tetanus Diphtheria and Acellular Pertussis (TDAP): Unsure - Medical/Surgical History Hx Asthma: No Hx Chronic Respiratory Disease: No Hx Diabetes: No Hx Cardiac Disease: No Hx Renal Disease: No Hx Cirrhosis: No Hx Alcoholism: Yes Hx HIV/AIDS: No Hx Splenectomy or Spleen Trauma: No Other PMH: PSYCH ISSUES. IV drug user. vertigo - Social History Smoking Status: Current every day smoker Constitutional: Initial Vital Signs Temperature (C) 37 C 05/28/18 18:24 Heart Rate 71 05/28/18 18:24 Respiratory Rate 16 05/28/18 18:24 Blood Pressure 138/91 H 05/28/18 18:24 O2 Sat (%) 94 05/28/18 18:24 O2 Delivery Mode Room Air Allergies/Adverse Reactions: codeine [Codeine] Allergy (Intermediate, Verified 05/28/18 18:24) Itching acetaminophen [From [place]] Allergy (Verified 05/28/18 18:24) bupropion [From Wellbutrin] Allergy (Verified 05/28/18 18:24) chlorpromazine [From Thorazine] Allergy (Verified 05/28/18 18:24) haloperidol [From Haldol] Allergy (Verified 05/28/18 18:24) hydrocodone [From [place]] Allergy (Verified 05/28/18 18:24) hydromorphone Allergy (Verified 05/28/18 18:24) morphine Allergy (Verified 05/28/18 18:24) quetiapine [From Seroquel] Allergy (Verified 05/28/18 18:24) Home Medications: Medication Instructions Recorded Amoxicillin/Clavulanate Pot 875 mg PO BID #14 tab 05/28/18 [Augmentin 875 mg tab] Medical Decision Making ED Course/Re-evaluation: 6:51 p.m.: Will treat patient with dose of Augmentin for ENT gayle. I do not think that imaging studies indicated at this time. Plan will be discharge. Given usual and customary precautions instructions. Care of patient under supervision of secondary supervising physician Dr Barrera Bautista with whom I discussed case. Departure - Departure Disposition: Home, Routine, Self-Care Clinical Impression: Acute sinusitis Condition: Good Instructions: Sinusitis (ED) Additional Instructions: Return to the emergency department immediately for change in breathing habits, change in voice, change in swallowing habits, change in mental status, or any other symptoms that concern you. Referrals: [facility],. [Clinic] - 2-3 days, call for appt. Prescriptions: Amoxicillin/Clavulanate Pot [Augmentin 875 mg tab] 875 mg PO BID #14 tab
== END 2018-05-28 18:58 | disposition home or self-care (01) ==
DX: J01.90 Acute sinusitis, unspecified (principal); B19.20 Unspecified viral hepatitis C without hepatic coma; F17.200 Nicotine dependence, unspecified, uncomplicated; Z59.0 Homelessness

== ENCOUNTER 2018-06-01 15:42 | Emergency (ER) | payer MEDICAID ==
[2018-06-01 15:48] VITALS: BP 115/78
--- NOTE | 2018-06-01 15:56 | EDPHY ---
H & P Stated Complaint: abdominal pain, n/d Time Seen by Provider: 06/01/18 15:55 - Personal History Current Tetanus/Diphtheria Vaccine: No Current Tetanus Diphtheria and Acellular Pertussis (TDAP): No - Medical/Surgical History Hx Asthma: No Hx Chronic Respiratory Disease: No Hx Diabetes: No Hx Cardiac Disease: No Hx Renal Disease: No Hx Cirrhosis: No Hx Alcoholism: Yes Hx HIV/AIDS: No Hx Splenectomy or Spleen Trauma: No Other PMH: PSYCH ISSUES. IV drug user. vertigo - Social History Smoking Status: Current every day smoker Constitutional: Initial Vital Signs Temperature (C) 36.5 C 06/01/18 15:44 Heart Rate 78 06/01/18 15:44 Respiratory Rate 16 06/01/18 15:44 Blood Pressure 115/78 06/01/18 15:44 O2 Sat (%) 96 06/01/18 15:44 O2 Delivery Mode Room Air Allergies/Adverse Reactions: codeine [Codeine] Allergy (Intermediate, Verified 05/28/18 18:24) Itching acetaminophen [From [place]] Allergy (Verified 05/28/18 18:24) bupropion [From Wellbutrin] Allergy (Verified 05/28/18 18:24) chlorpromazine [From Thorazine] Allergy (Verified 05/28/18 18:24) haloperidol [From Haldol] Allergy (Verified 05/28/18 18:24) hydrocodone [From [place]] Allergy (Verified 05/28/18 18:24) hydromorphone Allergy (Verified 05/28/18 18:24) morphine Allergy (Verified 05/28/18 18:24) quetiapine [From Seroquel] Allergy (Verified 05/28/18 18:24) Home Medications: Medication Instructions Recorded Amoxicillin/Clavulanate Pot 875 mg PO BID #14 tab 05/28/18 [Augmentin 875 mg tab] Fluticasone Nasal [Flonase Nasal 2 sprays NASAL DAILY #1 mdi 06/01/18 [place] (RX)] Medical Decision Making ED Course/Re-evaluation: CHIEF COMPLAINT: Diarrhea HISTORY OF PRESENT ILLNESS: The patient is a 47 y/o male with a history of IV drug use complaining of diarrhea, sinus pressure, and pins going through his body. He reports that he has had a sinus infection and thought he had a flu for several days. He was seen in this emergency department and prescribed Augmentin for the sinus infection. Today he had several episodes of diarrhea. There is another person at the place he is sleeping that also has diarrhea. While lying in bed today he felt like there were pins "going through his entire body". No fever, headache, chest pain, shortness of breath, urinary complaints, numbness, paresthesias. REVIEW OF SYSTEMS: A comprehensive 10 system review of systems is otherwise negative aside from elements mentioned in the history of present illness and medical decision making. PHYSICAL EXAM: HR, BP, O2 Sat, RR. Temp noted General Appearance: Alert, well hydrated, appropriate, and non-toxic appearing. Head: Atraumatic without scalp tenderness or obvious injury Eyes: Pupils equal, round, reactive to light and accommodation, EOMI, no trauma , no injection. Ears: Clear bilaterally, no perforation, normal landmarks Nose: Atraumatic, no rhinorrhea, clear. Throat: There is no erythema or exudates, no lesions, normal tonsils, mucus membranes moist. Neck: Supple, 2+ carotid upstroke, nontender, no lymphadenopathy. Respiratory: No retractions, no distress, no wheezes, and no accessory muscle use. Lungs are clear to auscultation bilaterally. Cardiovascular: Regular rate and rhythm, no murmurs, rubs, or gallops. Bilateral carotid, radial, dorsalis pedis, and posterior tibial pulses intact. Good capillary refill all extremities. Gastrointestinal: Abdomen is soft, nontender, non-distended, no masses, no rebound, no guarding, no peritoneal signs. Musculoskeletal: Normal active ROM of all extremities, atraumatic. Neurological: Alert, appropriate, and interactive. The patient has normal DTRs and non-focal cranial nerves, motor, sensory, and cerebellar exam. Skin: No rashes, good turgor, no nodules on palpation. Past medical history: Vertigo, IV drug use Past surgical history: Denies Family history: Denies Social history: Lives in [place], not employed, single DIAGNOSTICS/PROCEDURES/CRITICAL CARE TIME: Not indicated. DIFFERENTIAL DIAGNOSIS: The differential diagnosis for the patient's fever included but was not limited to pneumonia, urinary tract infection, viral syndrome, meningitis, and sepsis. MEDICAL DECISION MAKING: The patient is a 47 y/o male with a history of IV drug use presenting with diarrhea, sinus pressure, and pings going through his body. He has a prescription for Augmentin for a sinus infection. Patient most likely has a viral syndrome as his physical exam is normal. Imaging and laboratory studies are not indicated. I have prescribed him Flonase for the sinus pressure and advised him to take Mucinex. Return precautions provided; patient is comfortable with this plan. Departure - Departure Disposition: Home, Routine, Self-Care Clinical Impression: Diarrhea Qualifiers: Diarrhea type: unspecified type Qualified Code(s): R19.7 - Diarrhea, unspecified Sinusitis Qualifiers: Sinusitis location: unspecified location Chronicity: acute Recurrence: not specified as recurrent Qualified Code(s): J01.90 - Acute sinusitis, unspecified Condition: Good Instructions: Sinusitis (ED), Acute Diarrhea (ED) Additional Instructions: 1. Take Flonase as prescribed. 2. Take Mucinex twice a day for your sinus pressure. 3. Follow-up with your primary doctor within 72 hours. 4. Return to the Emergency Department for severe headache, vomiting, vision changes, confusion, fever or other concerns. Referrals: [facility],. [Clinic] - As per Instructions Prescriptions: Fluticasone Nasal [Flonase Nasal [place] (RX)] 2 sprays NASAL DAILY #1 mdi Report Scribed for: Martin Guerrero Report Scribed by: Estrella Ruff Date of Report: 06/01/18 Time of Report: 16:04
== END 2018-06-01 16:41 | disposition home or self-care (01) ==
DX: R19.7 Diarrhea, unspecified (principal); J01.90 Acute sinusitis, unspecified

== ENCOUNTER 2018-06-17 14:18 | Emergency (ER) | payer MEDICAID ==
[2018-06-17 14:29] VITALS: BP 120/73
--- NOTE | 2018-06-17 15:11 | EDPHY ---
H & P Stated Complaint: Sinus infection x1mo, finished Amox, scabs neck and L hand Time Seen by Provider: 06/17/18 14:36 - Personal History Current Tetanus/Diphtheria Vaccine: No - Medical/Surgical History Hx Asthma: No Hx Chronic Respiratory Disease: No Hx Diabetes: No Hx Cardiac Disease: No Hx Renal Disease: No Hx Cirrhosis: No Hx Alcoholism: Yes Hx HIV/AIDS: No Hx Splenectomy or Spleen Trauma: No Other PMH: PSYCH ISSUES. IV drug user. vertigo - Social History Smoking Status: Current every day smoker Constitutional: Initial Vital Signs Temperature (C) 36.7 C 06/17/18 14:25 Heart Rate 85 06/17/18 14:25 Respiratory Rate 16 06/17/18 14:25 Blood Pressure 120/73 06/17/18 14:25 O2 Sat (%) 94 06/17/18 14:25 O2 Delivery Mode Room Air Allergies/Adverse Reactions: codeine [Codeine] Allergy (Intermediate, Verified 06/17/18 14:25) Itching acetaminophen [From [place]] Allergy (Verified 06/17/18 14:25) bupropion [From Wellbutrin] Allergy (Verified 06/17/18 14:25) chlorpromazine [From Thorazine] Allergy (Verified 06/17/18 14:25) haloperidol [From Haldol] Allergy (Verified 06/17/18 14:25) hydrocodone [From [place]] Allergy (Verified 06/17/18 14:25) hydromorphone Allergy (Verified 06/17/18 14:25) morphine Allergy (Verified 06/17/18 14:25) quetiapine [From Seroquel] Allergy (Verified 06/17/18 14:25) Home Medications: Medication Instructions Recorded Amoxicillin/Clavulanate Pot 875 mg PO BID #14 tab 05/28/18 [Augmentin 875 mg tab] Fluticasone Nasal [Flonase Nasal 2 sprays NASAL DAILY #1 mdi 06/01/18 [place] (RX)] Azithromycin [Zithromax] 250 mg PO DAILY #6 tab 06/17/18 Fluticasone Nasal [Flonase Nasal 2 sprays NASAL DAILY #1 mdi 06/17/18 [place] (RX)] Medical Decision Making ED Course/Re-evaluation: CHIEF COMPLAINT: Patient presents with rash and sinus infection HISTORY OF PRESENT ILLNESS: Patient has had a sinus infection and has had 1 round of amoxicillin. He says it is not any better. He was on some Flonase and Mucinex but is back got stolen. He is requesting a Z-Nitish. He also has a few small scabs throughout his body and believes he was exposed to bedbugs. REVIEW OF SYSTEMS: A comprehensive 10 system review of systems is otherwise negative aside from elements mentioned in the history of present illness and medical decision making. PHYSICAL EXAM: HR, BP, O2 Sat, RR. Temp noted General Appearance: Alert, well hydrated, appropriate, and non-toxic appearing. Head: Atraumatic without scalp tenderness or obvious injury Eyes: Pupils equal, round, reactive to light and accommodation, EOMI, no trauma , no injection. Ears: Clear bilaterally, no perforation, normal landmarks Nose: Sinus pressure bilateral maxillary sinuses. Nasal discharge. Atraumatic , no rhinorrhea, clear. Throat: There is no erythema or exudates, no lesions, normal tonsils, mucus membranes moist. Neck: Supple, 2+ carotid upstroke, nontender, no lymphadenopathy. Respiratory: No retractions, no distress, no wheezes, and no accessory muscle use. Lungs are clear to auscultation bilaterally. Cardiovascular: Regular rate and rhythm, no murmurs, rubs, or gallops. Bilateral carotid, radial, dorsalis pedis, and posterior tibial pulses intact. Good capillary refill all extremities. Gastrointestinal: Abdomen is soft, nontender, non-distended, no masses, no rebound, no guarding, no peritoneal signs. Musculoskeletal: Normal active ROM of all extremities, atraumatic. Neurological: Alert, appropriate, and interactive. The patient has normal DTRs and non-focal cranial nerves, motor, sensory, and cerebellar exam. Skin: Few small scabs throughout his body consistent with bedbugs. No rashes, good turgor, no nodules on palpation. Past medical history: Sinusitis Past surgical history: Noncontributory Family history: Noncontributory Social history: Employed, does not abuse tobacco drugs or alcohol, living in a half-way residence DIFFERENTIAL DIAGNOSIS: Includes but is not limited to: Sinusitis, otitis, pharyngitis, viral illness, bacterial illness. MEDICAL DECISION MAKING: I will give this patient a Z-Nitish and Mucinex and Flonase. I will give him instructions about bedbugs. He has been told to return if he worsens. Departure - Departure Disposition: Home, Routine, Self-Care Clinical Impression: Sinusitis nasal Qualifiers: Sinusitis location: maxillary Chronicity: acute Recurrence: recurrent Qualified Code(s): J01.01 - Acute recurrent maxillary sinusitis Bedbug bite Qualifiers: Encounter type: initial encounter Qualified Code(s): W57.XXXA - Bitten or stung by nonvenomous insect and other nonvenomous arthropods, initial encounter Condition: Good Instructions: Sinusitis (ED), Bed Bugs (ED) Referrals: Jenny Rothman PA [Primary Care Provider] - As per Instructions Prescriptions: Azithromycin [Zithromax] 250 mg PO DAILY #6 tab Fluticasone Nasal [Flonase Nasal [place] (RX)] 2 sprays NASAL DAILY #1 mdi
== END 2018-06-17 15:22 | disposition home or self-care (01) ==
DX: J01.01 Acute recurrent maxillary sinusitis (principal); W57.XXXA Bitten or stung by nonvenomous insect and other nonvenomous arthropods, initial encounter

== ENCOUNTER 2018-06-29 17:24 | Emergency (ER) | payer MEDICAID ==
--- NOTE | 2018-06-29 18:35 | EDPHY ---
H & P Stated Complaint: depression, states he lost his RX 2 days ago for Topamax Time Seen by Provider: 06/29/18 18:03 HPI/ROS: CHIEF COMPLAINT: "I lost my prescription for Topamax" HISTORY OF PRESENT ILLNESS: 47-year-old male history of depression states that he lost his prescription for Topamax few days ago, has been out for 2 days. He has an appointment with his prescriber at [facility]. He denies suicidal or homicidal ideation denies hallucination. PHYSICAL EXAM (Prior to examination, patient consented to physical exam, hands were washed and my usual and customary physical exam procedures followed) 1) GENERAL: Well-developed, well-nourished, alert and oriented. Appears to be in no acute distress. 2) HEAD: Normocephalic 3) HEENT: sclera anicteric 4) LUNGS: Breathing comfortably. - Personal History Current Tetanus/Diphtheria Vaccine: Yes Current Tetanus Diphtheria and Acellular Pertussis (TDAP): Yes - Medical/Surgical History Hx Asthma: No Hx Chronic Respiratory Disease: No Hx Diabetes: No Hx Cardiac Disease: No Hx Renal Disease: No Hx Cirrhosis: No Hx Alcoholism: Yes Hx HIV/AIDS: No Hx Splenectomy or Spleen Trauma: No Other PMH: PSYCH ISSUES Tourettes. IV drug user. vertigo - Social History Smoking Status: Current every day smoker Constitutional: Initial Vital Signs Temperature (C) 36.8 C 06/29/18 17:45 Heart Rate 73 06/29/18 17:45 Respiratory Rate 16 06/29/18 17:45 Blood Pressure 123/76 H 06/29/18 17:45 O2 Sat (%) 96 06/29/18 17:45 O2 Delivery Mode Room Air Allergies/Adverse Reactions: codeine [Codeine] Allergy (Intermediate, Verified 06/29/18 17:45) Itching acetaminophen [From [place]] Allergy (Verified 06/29/18 17:45) bupropion [From Wellbutrin] Allergy (Verified 06/29/18 17:45) chlorpromazine [From [place]] Allergy (Verified 06/29/18 17:45) haloperidol [From Haldol] Allergy (Verified 06/29/18 17:45) hydrocodone [From [place]] Allergy (Verified 06/29/18 17:45) hydromorphone Allergy (Verified 06/29/18 17:45) morphine Allergy (Verified 06/29/18 17:45) quetiapine [From Seroquel] Allergy (Verified 06/29/18 17:45) Home Medications: Medication Instructions Recorded Topamax 06/29/18 Medical Decision Making ED Course/Re-evaluation: With the assistance of the emergency department pharmacist the patient's prescription for Topamax 25 mg daily was confirmed and this was called into [facility]'s pharmacy by the emergency department pharmacist. Patient will be able to pick this up this afternoon. Care of patient under supervision of secondary supervising physician Dr Perez . Departure - Departure Disposition: Home, Routine, Self-Care Clinical Impression: Medication refill Condition: Good Instructions: Medicine Refill (ED) Referrals: [facility],. [Primary Care Provider] - 1-2 days without fail
[2018-06-29 18:47] VITALS: BP 128/70
== END 2018-06-29 18:46 | disposition home or self-care (01) ==
DX: Z76.0 Encounter for issue of repeat prescription (principal); F32.9 Major depressive disorder, single episode, unspecified